=== PATIENT | born 1975 | race Caucasian/White ===

== ENCOUNTER → 2024-10-18 | Outpatient (CLI) | payer OTHER ==
[2024-10-18 14:41] LABS: BASO # 0.04 K/mm3; EOS # 0.32 K/mm3; EOS % 6.3 %; HEMATOCRIT 39.2 %; HEMOGLOBIN 13.3 g/dL; LYMPH# 1.69 K/mm3; MEAN CELL VOLUME 95 fl; MEAN CORPUSCULAR HEMOGLOBIN 32 pg; MEAN CORPUSCULAR HGB CONC 34 g/dL; MEAN PLATELET VOLUME 8.4 fl; MONO # 0.37 K/mm3; NEU # 2.69 K/mm3; PLATELET COUNT 271 K/mm3; RED BLOOD COUNT 4.11 M/mm3; RED CELL DISTRIBUTION WIDTH 12.2 %; WHITE BLOOD COUNT 5.1 K/mm3
[2024-10-18 14:49] LABS: ALBUMIN 4.4 g/dL; SODIUM 139 mmol/L (136-145)
[2024-10-18 14:50] LABS: CALCIUM 9.6 mg/dL
[2024-10-18 14:52] LABS: GLUCOSE 81 mg/dL; TOTAL PROTEIN 7.3 g/dL
[2024-10-18 14:53] LABS: CARBON DIOXIDE 26 mmol/L (22-29); TOTAL BILIRUBIN 0.2 mg/dL
[2024-10-18 14:57] LABS: AST-SGOT 15 U/L (15-46)
[2024-10-18 14:58] LABS: ALT/SGPT 14 U/L (0-55)
[2024-10-18 15:05] LABS: TROPONIN-I < 0.030 ng/mL
== END ==
LOC: LAB 14:27
PROVIDERS: Nurse Practitioner Primary Care
DX: R07.89 Other chest pain (principal)